=== PATIENT | male | born 1955 | race Caucasian/White ===

== ENCOUNTER 2018-10-12 08:20 | Emergency (ER) | payer OTHER ==
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
[2018-10-12 10:27] VITALS: BP 141/75
== END 2018-10-12 10:27 | disposition home or self-care (01) ==
LOC: ED 08:20
DX: S63.501A Unspecified sprain of right wrist, initial encounter (principal); V89.2XXA Person injured in unspecified motor-vehicle accident, traffic, initial encounter; Y92.410 Unspecified street and highway as the place of occurrence of the external cause; F17.200 Nicotine dependence, unspecified, uncomplicated
CPT/HCPCS: 29125; 99283